=== PATIENT | female | born 2000 | race Caucasian/White ===

== ENCOUNTER 2019-06-05 14:08 | Emergency (ER) | payer BC ==
[~2019-06-05] VITALS: Ht 167.6 cm; Wt 52.2 kg
[2019-06-05 14:20] VITALS: BP_SYST 119
[2019-06-05] MEDS ORDERED: NACL 0.9% 1,000 ML IV ONE (15:00)
[2019-06-05 16:10] LABS: BASOPHILS # (AUTO) 0.1 K/uL (0.0-0.2); BASOPHILS % (AUTO) 0.7 % (0.0-2.0); EOSINOPHILS # (AUTO) 0.1 K/uL (0.0-0.4); EOSINOPHILS % (AUTO) 0.8 % (0.0-4.0); HEMOGLOBIN 14.4 g/dL (12.0-16.0); LYMPHOCYTES % (AUTO) 40.2 % (20.5-51.5); MEAN CORPUSCULAR HEMOGLOBIN 29 pg (27-31); MEAN CORPUSCULAR HGB CONC 33 % (32-36); MEAN CORPUSCULAR VOLUME 90 fL (79.0-98.0); MONOCYTES # (AUTO) 0.4 K/uL (0.0-1.0); MONOCYTES % (AUTO) 5.4 % (1.7-9.3); NEUTROPHILS # (AUTO) 3.9 K/uL (1.8-7.7); NEUTROPHILS % (AUTO) 52.9 % (40.0-70.0); PLATELET COUNT (AUTO) 200 K/uL (130-430); RED BLOOD CELL COUNT(AUTO) 4.89 MIL/uL (4.2-6.2); RED CELL DISTRIBUTION WIDTH 12.2 % (9.0-15.0); WHITE BLOOD COUNT (AUTO) 7.4 K/uL (4.5-11.0)
[2019-06-05 16:15] LABS: CALCIUM 9.4 mg/dL (8.4-11.0); CREATININE 0.94 mg/dL (0.55-1.30); POTASSIUM 3.9 mmol/L (3.5-5.1)
[2019-06-05 16:28] LABS: TOTAL BILIRUBIN 0.5 mg/dL (0.0-1.0)
[2019-06-05 17:01] VITALS: BP_SYST 115
== END 2019-06-05 17:00 | disposition home or self-care (01) ==
LOC: SED 14:08
DX: H54.7 Unspecified visual loss (principal)
CPT/HCPCS: 36415; 70460; 80053; 81025; 85025; 99284; J7030; 99283